=== PATIENT | female | born 1955 | race Caucasian/White ===

== ENCOUNTER 2017-05-31 07:35 | Emergency (ER) | payer OTHER ==
[~2017-05-31] VITALS: Ht 152.4 cm; Wt 49.9 kg
[2017-05-31 07:37] VITALS: BP 161/98
--- NOTE | 2017-05-31 07:51 | ED HEAD/FACIAL INJ COMPLAINT ---
History of Present Illness General Chief Complaint: Fall Stated Complaint: S/P FALL LAC TO HEAD Source: patient, family Exam Limitations: no limitations Vital Signs & Intake/Output Vital Signs & Intake/Output Vital Signs Date Time Temp Pulse Resp B/P B/P Pulse O2 O2 Flow FiO2 Mean Ox Delivery Rate 05/31 0737 97.1 70 18 161/98 99 Room Air Allergies Coded Allergies: No Known Allergies (05/31/17) Triage Note: PT STATES THAT SHE SLIPPED AND FELL BACKWARDS HITTING HER HEAD ON CURB, DENIES LOC PT NOTED WITH LAC TO BACK OF HEAD. Triage Nurses Notes Reviewed? yes Onset: Abrupt Severity: moderate Location: occipital Method of Injury: fall Loss of Consciousness: no loss of consciousness Associated Symptoms: BLEEDING HPI: This is a 61-year-old female presents from home with her family after slip and fall while trying to start a car. She states that she avoided the driveway and stepped on the grass but slipped anyhow. She fell backwards and hit her head she thinks on the side of a curb. No loss of consciousness. No headache no blurry vision confusion or ataxia. She states that she when she went to the house she noticed blood on her robe. Tetanus is not up-to-date. Past History Travel History Traveled to [place] past 21 day No Medical History Any Pertinent Medical History? 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 No Review of Systems Review of Systems Constitutional: Denies: chills, fever. EENTM: Reports: no symptoms. Respiratory: Reports: no symptoms. Cardiovascular: Denies: chest pain, palpitations. GI: Reports: no symptoms. Genitourinary: Reports: no symptoms. Musculoskeletal: Denies: back pain, joint pain. Skin: Reports: no symptoms. Neurological/Psychological: Reports: no symptoms. Hematologic/Endocrine: Reports: bleeding. Denies: bruising, polyuria, polydipsia. Immunologic/Allergic: Denies: splenectomy. All Other Systems: Reviewed and Negative Physical Exam Physical Exam General Appearance: well developed/nourished, alert, awake, mild distress Head: 12 CM SCALP LACERATION Eyes: Bilateral: PERRL, EOMI. Ears, Nose, Throat: normal pharynx, normal ENT inspection, hearing grossly normal Neck: normal inspection, supple Respiratory: normal breath sounds Cardiovascular: regular rate/rhythm Gastrointestinal: soft, non-tender Back: normal inspection Extremities: normal inspection, normal range of motion, no edema Psychiatric: awake, alert, oriented x 3 Cranial Nerves: normal hearing, normal speech, PERRL Coordination/Gait: normal gait Motor/Sensory: no motor/sensory deficits Skin: intact, normal color, warm/dry Lymphatic: no anterior cervical valentino Diagram Head: 1) SCALP LACERATION Progress Differential Diagnosis: ICH, skull fracture, SCALP LACERATION Plan of Care: NO SKULL DEPRESSION, NEURO INTACT. 10 CM MINIMALLY OOZING SCALP LACERATION. LAC REPAIR DESCRIBED. TETANUS UPDATED. Departure Departure Time of Disposition: 808 Disposition: HOME OR SELF CARE Condition: Stable Clinical Impression Primary Impression: Scalp laceration Referrals: Lee Ann MÉNDEZ,Peng Nathan (PCP/Family) Additional Instructions: Keep the area clean. Use topical antibiotic ointment. You may get the area wet. Follow-up in 7-10 days either with her primary care physician or the emergency department for staple removal. Return any sooner for headache, nausea , vomiting, confusion. Departure Forms: Customer Survey General Discharge Information Procedures Laceration/Wound Repair Laceration/Wound Repair: Wound Location: head Wound's Depth, Shape: linear Wound Length (cm): 10 Wound Explored: clean, no foreign body removed Betadine Prep? Yes Anesthesia: 1% lidocaine Volume Anesthetic (ccs): 8 Suture Size/Type: perfecto Number of Sutures: 6 Date of Last Tetanus: 05/31/17 Tetanus Status: up to date
== END 2017-05-31 08:32 ==
LOC: ERH 07:35
DX: S01.01XA Laceration without foreign body of scalp, initial encounter (principal); W01.0XXA Fall on same level from slipping, tripping and stumbling without subsequent striking against object, initial encounter; Y92.009 Unspecified place in unspecified non-institutional (private) residence as the place of occurrence of the external cause; Y93.9 Activity, unspecified
CPT/HCPCS: 90471

== ENCOUNTER 2017-06-11 16:58 | Emergency (ER) | payer OTHER ==
[~2017-06-11] VITALS: Ht 152.4 cm; Wt 52.6 kg
[2017-06-11 17:02] VITALS: BP 137/90
--- NOTE | 2017-06-11 17:22 | ED ANIMAL BITE/WOUND CHECK ---
History of Present Illness General Chief Complaint: Suture Removal/Wound Recheck Stated Complaint: WOUND CHECK Source: patient Exam Limitations: no limitations Vital Signs & Intake/Output Vital Signs & Intake/Output Vital Signs Date Time Temp Pulse Resp B/P B/P Pulse O2 O2 Flow FiO2 Mean Ox Delivery Rate 06/11 1702 97.0 78 18 137/90 97 Room Air Allergies Coded Allergies: No Known Allergies (05/31/17) Triage Note: PT TO ER FOR STAPLE REMOVAL. HAS 6 PERFECTO IN HEAD NO ISSUES OR COMPLAINTS Triage Nurses Notes Reviewed? yes Onset: Abrupt Duration: day(s):, constant Timing: recent history Injury Environment: home No Modifying Factors: none HPI: 61-year-old female comes into the emergency room for staple removal to the scalp. Patient has no complaints. No pain. No bleeding. Denies any other associated symptoms. (Yo Self) Past History Travel History Traveled to [place] past 21 day No Medical History Any Pertinent Medical History? 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 No (Yo Self) Review of Systems Review of Systems Constitutional: Reports: no symptoms. EENTM: Reports: no symptoms. Respiratory: Reports: no symptoms. Cardiovascular: Reports: no symptoms. GI: Reports: no symptoms. Genitourinary: Reports: no symptoms. Musculoskeletal: Reports: no symptoms. Skin: Reports: see HPI. Neurological/Psychological: Reports: no symptoms. Hematologic/Endocrine: Reports: no symptoms. Immunologic/Allergic: Reports: no symptoms. All Other Systems: Reviewed and Negative (Yo Self) Physical Exam Physical Exam General Appearance: well developed/nourished, mild distress Head: perfecto on scalp Eyes: Bilateral: normal appearance. Ears, Nose, Throat: normal ENT inspection, hearing grossly normal Neck: normal inspection Respiratory: no respiratory distress Back: normal inspection Extremities: normal range of motion Neurologic/Psych: awake, alert, oriented x 3, normal mood/affect Skin: intact, normal color, warm/dry (Yo Self) Progress Differential Diagnosis: abscess, cellulitis, joint infection, tenosysnovitis Plan of Care: All staple removed. Patient clinically looks well. No signs of infection. (Yo Self) Departure Departure Disposition: HOME OR SELF CARE Condition: Stable Clinical Impression Primary Impression: Removal of perfecto Referrals: Lee Ann MÉNDEZ,Peng Nathan (PCP/Family) Additional Instructions: Please go over all results of today's visit with your primary care doctor. Contact your primary care doctor to let them know you were here in the emergency room. There may be nonspecific findings which may not be related to your visit today here in the emergency room but may require further evaluation and chronic monitoring by your primary care doctor. If you had a laceration today the chance of foreign body always remains. You should follow-up with your primary care doctor for recheck in 3-5 days for a wound check. If you had an x-ray done there is a chance that a fracture could have been missed on initial read and you should follow-up with your primary care doctor for repeat x-rays if symptoms persist. If your blood pressure was elevated here in the emergency room please have rechecked by [facility] primary care doctor within the next 48. If you were prescribed a narcotic here in the emergency room or any type of controlled substances you're not allowed to drive while taking this medication or operate any type of heavy machinery. Narcotics can make you feel lightheaded dizziness nausea and can cause constipation. You may need to meat pickler a stool softener. Thank you for choosing [facility] emergency room. Please return to the emergency room immediately if you have any other concerns worsening of symptoms. Departure Forms: Customer Survey General Discharge Information (Yo Self) PA/SUSTAINABLE DESIGN COORDINATOR Co-Sign Statement Statement: ED Attending supervision documentation- [] I saw and evaluated the patient. I have also reviewed all the pertinent lab results and diagnostic results. I agree with the findings and the plan of care as documented in the PA's/SUSTAINABLE DESIGN COORDINATOR's documentation. [X] I have reviewed the ED Record and agree with the PA's/SUSTAINABLE DESIGN COORDINATOR's documentation. [] Additions or exceptions (if any) to the PAs/SUSTAINABLE DESIGN COORDINATOR's note and plan are summarized below: [] (Martha MÉNDEZ,Riaz Dukes)
== END 2017-06-11 17:34 ==
LOC: ERH 16:58
DX: S01.01XA Laceration without foreign body of scalp, initial encounter (principal); X58.XXXA Exposure to other specified factors, initial encounter; Y92.9 Unspecified place or not applicable; Y93.9 Activity, unspecified
CPT/HCPCS: 99281